=== PATIENT | female | born 1975 | race Caucasian/White ===

== ENCOUNTER 2020-04-13 06:29 | Emergency (ER) | payer MEDICAID ==
[~2020-04-13] VITALS: Ht 154.9 cm; Wt 79.4 kg
[2020-04-13 06:31] VITALS: BP 150/97
[2020-04-13] MEDS ORDERED: NACL 0.9% 1,000 ML IV ONE (06:40)
[2020-04-13] MEDS ORDERED: MORPHINE SULFATE 4 MG/ML SYR IVP ONE (06:40)
[2020-04-13] MEDS ORDERED: ONDANSETRON 4 MG/2 ML VIAL IVP ONE (06:40)
--- NOTE | 2020-04-13 06:45 | NUR ---
PT AMBULATED TO BED 04 STEADY GAIT
--- NOTE | 2020-04-13 06:45 | NUR ---
44 Y/O FEMALE C/O ABD PAIN X 0200 TODAY. PT STATES CONTINUOUS 9/10 BURNING SENSATION. +NAUSEA +DYSURIA. RX: MOTRIN 3HRS WITH NO RELIEF. NKDA. PMH: GALLBLADDER REMOVAL, LEFT OVARIAN CYST.
--- NOTE | 2020-04-13 06:52 | NUR ---
SAILAJA SWAB COLLECTED AND SENT TO LAB
--- NOTE | 2020-04-13 07:00 | NUR ---
PT TAKEN TO CT SCAN VIA W/C
[2020-04-13 07:02] LABS: BASOPHILS % (AUTO) 0.4 % (0.0-2.0); EOSINOPHILS # (AUTO) 0.2 K/uL (0-0.4); EOSINOPHILS % (AUTO) 1.9 % (0.0-4.0); HEMATOCRIT 35.3 % (36-48); HEMOGLOBIN 11.5 g/dL (12.0-16.0); LYMPHOCYTES # (AUTO) 3.1 K/uL (2.5-16.5); LYMPHOCYTES % (AUTO) 37.3 % (20.5-51.1); MEAN CORPUSCULAR HEMOGLOBIN 27 pg (27-31); MEAN CORPUSCULAR HGB CONC 33 g/dL (33-37); MEAN CORPUSCULAR VOLUME 83.1 fL (80-94); MONOCYTES # (AUTO) 0.7 K/uL (0.8-1.0); MONOCYTES % (AUTO) 8.1 % (1.7-9.3); NEUTROPHILS # (AUTO) 4.3 K/uL (1.8-7.7); NEUTROPHILS % (AUTO) 52.3 % (42.2-75.2); PLATELET COUNT (AUTO) 271 K/uL (140-450); RED BLOOD CELL COUNT(AUTO) 4.25 MIL/uL (4.20-5.40); RED CELL DISTRIBUTION WIDTH 17.8 % (11.6-13.7); WHITE BLOOD COUNT (AUTO) 8.3 K/uL (4.8-10.8)
--- NOTE | 2020-04-13 07:06 | NUR ---
PT RETURNED FROM CT SCAN
[2020-04-13 07:12] LABS: APPEARANCE,URINE HAZY (CLEAR); BILIRUBIN,URINE NEGATIVE (NEGATIVE); BLOOD, URINE NEGATIVE (NEGATIVE); COLOR,URINE YELLOW (YELLOW); LEUKOCYTE ESTERASE ,URINE 1+ (NEGATIVE); UGLUCOSE NEGATIVE (NEGATIVE)
--- NOTE | 2020-04-13 07:13 | NUR ---
REPORT GIVEN TO NASIR HURTADO FOR CONTINUITY OF CARE
[2020-04-13 07:18] LABS: ALBUMIN 3.9 g/dL (3.4-5.0); ANION GAP 16.3 (8-16); CARBON DIOXIDE 23.3 mmol/L (21-32); CREATININE 0.6 mg/dL (0.6-1.3); POTASSIUM 3.6 mmol/L (3.5-5.1); TOTAL BILIRUBIN 0.3 mg/dL (0.0-1.0)
--- NOTE | 2020-04-13 07:30 | NUR ---
Pt awake and alert resting in bed. Pt on cardiac tele monitor. All needs met at this time. Will continue to monitor.
[2020-04-13 07:32] LABS: RBC,URINE 0-5 /HPF (0-5); WBC,URINE 0-5 /HPF (0-5)
[2020-04-13 07:33] LABS: NITRITE, URINE POSITIVE (NEGATIVE)
--- NOTE | 2020-04-13 08:09 | NUR ---
MD Manning made aware, pt c/o pain level 8/10 abdominal pain. Awaiting for orders at this time.
[2020-04-13] MEDS ORDERED: KETOROLAC 30 MG/ML VIAL IVP ONE (08:10)
--- NOTE | 2020-04-13 08:25 | NUR ---
Pt refused Toradol, per pt "I think that is the medication that made my neck twitch last time." made aware.
--- NOTE | 2020-04-13 08:32 | NUR ---
MD Manning updating pt on plan of care.
--- NOTE | 2020-04-13 09:26 | NUR ---
Patient discharged with v/s stable. Written and verbal after care instructions given and explained. Patient alert, oriented and verbalized understanding of instructions. Ambulatory with steady gait. All questions addressed prior to discharge. ID band removed. Patient advised to follow up with PMD. Rx of Miraloax Powder, Mineral oil and motrin 800mg was given. Patient educated on indication of medication including possible reaction and side effects. Opportunity to ask questions provided and answered.
[2020-04-13 09:27] VITALS: BP 130/82
== END 2020-04-13 09:26 | disposition home or self-care (01) ==
LOC: MED 06:29
DX: K59.00 Constipation, unspecified (principal); Z20.822 Contact with and (suspected) exposure to COVID-19
CPT/HCPCS: 36415; 74018; 74176; 80053; 81001; 83605; 85025; 87040; 87086; 87426; 96361; 96374; 96375; 99285; J1885; J2270; J2405

== ENCOUNTER 2020-06-27 03:00 | Emergency (ER) | payer MEDICAID ==
[~2020-06-27] VITALS: Ht 154.9 cm; Wt 82.1 kg
[2020-06-27 03:08] VITALS: BP 132/81
--- NOTE | 2020-06-27 03:15 | NUR ---
RECEIVED IN BED 3 WITH C/O LEFT SIDED HEAD PAIN X 8 DAYS. MUCH FACIAL GRIMACING IS NOTED
--- NOTE | 2020-06-27 03:15 | NUR ---
VISUAL ACCUITY TEST: BOTH EYE: 20/10, R EYE:20/10, L EYE: 20/15.
--- NOTE | 2020-06-27 04:10 | NUR ---
TO CT VIA W/C
[2020-06-27] MEDS ORDERED: PROCHLORPERAZINE 10 MG/2 ML VIAL IM ONE (06:00)
[2020-06-27] MEDS ORDERED: KETOROLAC 30 MG/ML VIAL IM ONE (06:00)
[2020-06-27] MEDS ORDERED: diphenhydrAMINE 50 MG/ML VIAL IM ONE (06:00)
[2020-06-27] MEDS ORDERED: HYDROcodone/APAP 5/325 MG 1 TAB TAB PO ONE (06:00)
[2020-06-27 06:40] VITALS: BP 132/81
--- NOTE | 2020-06-27 06:40 | NUR ---
Patient discharged with v/s stable. Written and verbal after care instructions given and explained. Patient verbalized understanding. Ambulatory with steady gait. All questions addressed prior to discharge. Advised to follow up with PMD.
== END 2020-06-27 06:46 | disposition home or self-care (01) ==
LOC: MED 03:00
DX: G43.909 Migraine, unspecified, not intractable, without status migrainosus (principal)
CPT/HCPCS: 70450; 81025; 96372; 99284; J0780; J1200; J1885

== ENCOUNTER 2020-08-16 11:00 | Emergency (ER) | payer MEDICAID ==
[~2020-08-16] VITALS: Ht 154.9 cm; Wt 78.5 kg
[2020-08-16 11:09] VITALS: BP 133/82
--- NOTE | 2020-08-16 11:17 | NUR ---
pt ambulated to bed 07.
--- NOTE | 2020-08-16 11:31 | NUR ---
44 YEAR OLD FEMALE COMPLAINS OF NONRADIATING CHEST PAIN X 3 DAYS. PT STATES FEELS LIKE PRESSURE PAIN. PT ALSO COMPLAINS OF SOB, LUNGS CLEAR BL. PT DENIES NAUSEA, VOMITTING. PT AOX4, BREATHING EVEN AND UNLABORED, SKIN WARM AND DRY. BED IN LOWEST POSITION, LOCKED, BED RAIL UPX1. PT PLACED ON MONITOR, VS STABLE. PMH - DENIES ALLERGIES - NKA
[2020-08-16] MEDS ORDERED: IBUPROFEN 600 MG TAB PO ONE (12:05)
[2020-08-16 12:28] LABS: BASOPHILS % (AUTO) 0.4 % (0.0-2.0); EOSINOPHILS # (AUTO) 0.1 K/uL (0-0.4); EOSINOPHILS % (AUTO) 1.7 % (0.0-4.0); HEMATOCRIT 31.7 % (36-48); HEMOGLOBIN 10.3 g/dL (12.0-16.0); LYMPHOCYTES # (AUTO) 1.4 K/uL (2.5-16.5); LYMPHOCYTES % (AUTO) 19.1 % (20.5-51.1); MEAN CORPUSCULAR HEMOGLOBIN 25 pg (27-31); MEAN CORPUSCULAR HGB CONC 33 g/dL (33-37); MEAN CORPUSCULAR VOLUME 77.6 fL (80-94); MONOCYTES # (AUTO) 0.6 K/uL (0.8-1.0); MONOCYTES % (AUTO) 8.6 % (1.7-9.3); NEUTROPHILS % (AUTO) 70.2 % (42.2-75.2); PLATELET COUNT (AUTO) 247 K/uL (140-450); RED BLOOD CELL COUNT(AUTO) 4.08 MIL/uL (4.20-5.40); RED CELL DISTRIBUTION WIDTH 18.1 % (11.6-13.7); WHITE BLOOD COUNT (AUTO) 7.2 K/uL (4.8-10.8)
--- NOTE | 2020-08-16 12:50 | NUR ---
PT STATES SHE IS STILL HAVING CHEST PAIN AND BODYACHES, ERMD MADE AWARE
[2020-08-16 12:51] LABS: ALBUMIN 3.8 g/dL (3.4-5.0); ANION GAP 12.7 (8-16); CREATININE 0.5 mg/dL (0.6-1.3); POTASSIUM 3.7 mmol/L (3.5-5.1); TOTAL BILIRUBIN 0.3 mg/dL (0.0-1.0)
[2020-08-16] MEDS ORDERED: LORazepam 1 MG TAB PO ONE (12:55)
--- NOTE | 2020-08-16 13:37 | NUR ---
PT STATES SHE STILL HAS BODYACHES AND CHEST PAIN AFTER MEDS, ERMD MADE AWARE
--- NOTE | 2020-08-16 13:46 | NUR ---
DR LINK AT BEDSIDE OF PT
--- NOTE | 2020-08-16 14:50 | NUR ---
SAILAJA SWAB SENT TO LAB
[2020-08-16 16:07] VITALS: BP 117/71
== END 2020-08-16 16:08 | disposition home or self-care (01) ==
LOC: MED 11:00
DX: B34.9 Viral infection, unspecified (principal); Z20.822 Contact with and (suspected) exposure to COVID-19; R07.9 Chest pain, unspecified
CPT/HCPCS: 36415; 71045; 80053; 84484; 85025; 93005; 99285

== ENCOUNTER 2020-08-20 04:55 | Emergency (ER) | payer MEDICAID ==
[~2020-08-20] VITALS: Ht 154.9 cm; Wt 78.9 kg
[2020-08-20 05:15] VITALS: BP 117/61
[2020-08-20] MEDS ORDERED: ACETAMINOPHEN 325 MG TAB PO ONE (06:20)
[2020-08-20] MEDS ORDERED: ACETAMINOPHEN 325 MG TAB ONE (06:28)
[2020-08-20 07:47] VITALS: BP 123/83
== END 2020-08-20 07:47 | disposition home or self-care (01) ==
LOC: MED 04:55
DX: J06.9 Acute upper respiratory infection, unspecified (principal); M94.0 Chondrocostal junction syndrome [Tietze]
CPT/HCPCS: 71045; 93005; 99283

== ENCOUNTER 2020-10-17 13:02 | Emergency (ER) | payer MEDICAID ==
[~2020-10-17] VITALS: Ht 154.9 cm; Wt 78.9 kg
[2020-10-17 13:04] VITALS: BP 127/77
--- NOTE | 2020-10-17 13:13 | NUR ---
44yo f c/o headache, Left sided neck and nape pain x 3 weeks. denies trauma or injury to area. took Tylenol and Ibuprofen last night with little relief. no bruising or trauma noted. pmh: none meds: none nka
--- NOTE | 2020-10-17 13:19 | NUR ---
CHECO PAUL AT BEDSIDE EXAMINING PT
--- NOTE | 2020-10-17 13:25 | NUR ---
PT AMBULATED TO RESTROOM
[2020-10-17] MEDS: KETOROLAC 30 MG/ML VIAL IM ONE (13:53)
[2020-10-17] MEDS: ONDANSETRON 4 MG ODT PO ONE (13:54)
[2020-10-17] MEDS ORDERED: ACET-9496 PO (14:13)
[2020-10-17 14:22] VITALS: BP 127/77
--- NOTE | 2020-10-17 14:22 | NUR ---
Patient discharged with v/s stable. Written and verbal after care instructions about migranes given and explained. Patient alert, oriented and verbalized understanding of instructions. Ambulatory with steady gait. All questions addressed prior to discharge. ID band removed. Patient advised to follow up with PMD. Rx of excedrim extra strength given. Patient educated on indication of medication including possible reaction and side effects. Opportunity to ask questions provided and answered.
== END 2020-10-17 14:22 | disposition home or self-care (01) ==
LOC: MED 13:02
DX: G43.909 Migraine, unspecified, not intractable, without status migrainosus (principal)
CPT/HCPCS: 81002; 81025; 96372; 99283; J1885; Q0162; Q0163

== ENCOUNTER 2021-06-18 09:23 | Emergency (ER) | payer MEDICAID ==
[~2021-06-18] VITALS: Ht 152.4 cm; Wt 84.6 kg
[~2021-06-18 09:23] MED LIST: ACET-9496 PO
[2021-06-18 09:29] VITALS: BP 119/74
--- NOTE | 2021-06-18 09:34 | NUR ---
PT AMBULATED TO ER BED 9 WITH A STEADY GAIT.
--- NOTE | 2021-06-18 09:42 | NUR ---
45 Y/O FEMALE C/O DIZZINESS AND HEADACHE 09/30 DESCRIBES THROBBING X2 WEEKS. PT BP 119/74 IN TRIAGE. DENIES FEVER/CHILLS. DENIES N/V/D. DENIES PMH NKA
--- NOTE | 2021-06-18 10:16 | NUR ---
DR. CARRANZA AT PT BEDSIDE FOR FURTHER EVALUATION.
--- NOTE | 2021-06-18 10:39 | NUR ---
PT TAKEN TO CT VIA W/C.
[2021-06-18] MEDS ORDERED: diphenhydrAMINE 50 MG/ML VIAL IVP ONE (10:40)
[2021-06-18] MEDS ORDERED: ACETAMINOPHEN EXTRA STRENGTH 500 MG TAB PO ONE (10:40)
[2021-06-18] MEDS ORDERED: METOCLOPRAMIDE 10 MG/2 ML INJ VIAL IVP ONE (10:40)
--- NOTE | 2021-06-18 10:45 | NUR ---
PT TAKEN TO ER BED 9 VIA W/C FROM CT.
[2021-06-18] MEDS ORDERED: KETOROLAC 15 MG/ML VIAL IVP ONE (11:25)
[2021-06-18 12:26] VITALS: BP 119/74
--- NOTE | 2021-06-18 12:26 | NUR ---
Patient discharged with v/s stable. Written and verbal after care instructions given FOR MIGRAINES and explained. Patient verbalized understanding. Ambulatory with steady gait. All questions addressed prior to discharge. Advised to follow up with PMD.
== END 2021-06-18 12:26 | disposition home or self-care (01) ==
LOC: MED 09:23
DX: G43.909 Migraine, unspecified, not intractable, without status migrainosus (principal); Z79.899 Other long term (current) drug therapy
CPT/HCPCS: 70450; 96374; 96375; 99284; J1200; J1885; J2765

== ENCOUNTER 2021-06-30 22:55 | Emergency (ER) | payer MEDICAID ==
[~2021-06-30] VITALS: Ht 154.9 cm; Wt 86.6 kg
[2021-06-30 23:03] VITALS: BP 111/73
--- NOTE | 2021-06-30 23:05 | NUR ---
PT AMBULATED TO BED #5
[2021-06-30] MEDS ORDERED: COROTSOL RIGHT EAR (23:23)
[2021-06-30] MEDS ORDERED: IBUPROFEN 800 MG TAB PO ONE (23:25)
--- NOTE | 2021-06-30 23:55 | NUR ---
Note sandra in EDM - 07/01/21 at 2230 by BRITT Patient discharged with v/s stable. Written and verbal after care instructions given and explained. Patient verbalized understanding. Ambulatory with steady gait. All questions addressed prior to discharge. Advised to follow up with PMD.
[2021-07-01] MEDS ORDERED: NEOMYCIN/POLYMYXIN/HC OT SOL. 10 ML BTL RIGHT EAR ONE
[2021-07-01 00:06] VITALS: BP 111/73
--- NOTE | 2021-07-01 00:06 | NUR ---
Patient discharged with v/s stable. Written and verbal after care instructions given and explained. Patient verbalized understanding. Ambulatory with steady gait. All questions addressed prior to discharge. Advised to follow up with PMD
--- NOTE | 2021-07-01 00:06 | NUR ---
NEOMYCIN GIVEN PER DR MAGDALENO AFTER DC PAPERWORK GIVEN TO PT
== END 2021-06-30 23:55 | disposition home or self-care (01) ==
LOC: MED 22:55
DX: H66.91 Otitis media, unspecified, right ear (principal); Z90.49 Acquired absence of other specified parts of digestive tract; Z79.899 Other long term (current) drug therapy; Z98.890 Other specified postprocedural states
CPT/HCPCS: 99283

== ENCOUNTER 2021-08-14 10:33 | Emergency (ER) | payer MEDICAID ==
[~2021-08-14] VITALS: Ht 149.9 cm; Wt 85.7 kg
[~2021-08-14 10:33] MED LIST changes: +COROTSOL RIGHT EAR
[2021-08-14 10:46] VITALS: BP 127/81
--- NOTE | 2021-08-14 11:05 | NUR ---
PATIENT IN ROOM 2 WITH GOWN ON.
--- NOTE | 2021-08-14 11:18 | NUR ---
45YR OLD FEMALE BIB SELF C/O COUGH CP UPPER BACK PAIN X7 DAYS. PAIN LEVEL 8/10. PT STATES BEING SOB WITH COUGH. HAS BEEN COUGHING UP PHELGM. CHEST "HEAVINESS" RADITATES TO UPPER BACK . DENIES FEVER DENIES V/D. PT IN GOWN ON BED SIDE RAILS UP X1. BED AT LOWEST POSITION. NKDA NO MED HX TO NOTE
--- NOTE | 2021-08-14 11:44 | NUR ---
COVID SWAB OBTAINED AND SENT TO LAB
--- NOTE | 2021-08-14 12:16 | NUR ---
45 y/o female, c/o sore throat, productive cough, cp and sob when coughing for 1 week. denies anyone else sick at home. a&o x4, ambulates with even and steady gait. lung sounds clear bl, heart sounds even. pmh: denies nka med: denies
[2021-08-14] MEDS ORDERED: PRED20TA5 PO (12:33)
[2021-08-14] MEDS ORDERED: BENZ200C4 PO (12:33)
[2021-08-14] MEDS ORDERED: AZIT250T4 PO (12:33)
[2021-08-14 12:50] VITALS: BP 114/53
--- NOTE | 2021-08-14 12:50 | NUR ---
Patient discharged with v/s stable. Written and verbal after care instructions given and explained. Patient alert, oriented and verbalized understanding of instructions. Ambulatory with steady gait. All questions addressed prior to discharge. ID band removed. Patient advised to follow up with PMD. Rx of ZITHROMAX PREDNISONE BENZONATATE given. Patient educated on indication of medication including possible reaction and side effects. Opportunity to ask questions provided and answered.
--- NOTE | 2021-08-14 12:51 | NUR ---
The patient's care was reviewed and supervised by Mila Santiago RN.
== END 2021-08-14 12:50 | disposition home or self-care (01) ==
LOC: MED 10:33
DX: J40 Bronchitis, not specified as acute or chronic (principal); Z20.822 Contact with and (suspected) exposure to COVID-19
CPT/HCPCS: 71045; 87426; 99284; Q0092

== ENCOUNTER 2021-09-05 15:33 | Emergency (ER) | payer MEDICAID ==
[~2021-09-05] VITALS: Ht 154.9 cm; Wt 83.9 kg
[~2021-09-05 15:33] MED LIST changes: +AZIT250T4 PO; +BENZ200C4 PO; +PRED20TA5 PO
[2021-09-05 15:54] VITALS: BP 124/81
[2021-09-05] MEDS ORDERED: DEXAMETHASONE 10 MG/ML VIAL IM ONE (17:15)
[2021-09-05] MEDS ORDERED: KETOROLAC 30 MG/ML VIAL IM ONE (17:15)
[2021-09-05] MEDS ORDERED: LORA10TA19 PO (17:46)
[2021-09-05] MEDS ORDERED: DEXT15EL PO (17:46)
[2021-09-05 17:53] VITALS: BP 118/70
--- NOTE | 2021-09-05 17:54 | NUR ---
Patient discharged with v/s stable. Written and verbal after care instructions given and explained. Patient alert, oriented and verbalized understanding of instructions. Ambulatory with steady gait. All questions addressed prior to discharge. ID band removed. Patient advised to follow up with PMD. Rx of MOTRIN, ROBITUSSIN given. Patient educated on indication of medication including possible reaction and side effects. Opportunity to ask questions provided and answered.
== END 2021-09-05 17:54 | disposition home or self-care (01) ==
LOC: MED 15:33
DX: J40 Bronchitis, not specified as acute or chronic (principal); Z79.899 Other long term (current) drug therapy; Z79.2 Long term (current) use of antibiotics
CPT/HCPCS: 71045; 96372; 99284; J1100; J1885

== ENCOUNTER 2022-02-23 01:40 | Emergency (ER) | payer MEDICAID ==
[~2022-02-23] VITALS: Ht 154.9 cm; Wt 86.9 kg
[~2022-02-23 01:40] MED LIST changes: +DEXT15EL PO; +LORA10TA19 PO
[2022-02-23 01:44] VITALS: BP 117/78
--- NOTE | 2022-02-23 01:50 | NUR ---
pt to lobby
--- NOTE | 2022-02-23 04:09 | NUR ---
SUDHIR GAMINO examining patient
[2022-02-23] MEDS ORDERED: KETOROLAC 60 MG/2 ML VIAL IM ONE (04:15)
[2022-02-23] MEDS ORDERED: ONDA-188 PO (04:16)
[2022-02-23] MEDS ORDERED: ACET-9527 PO (04:16)
[2022-02-23] MEDS ORDERED: IBUP-2213 PO (04:16)
[2022-02-23 04:35] VITALS: BP 117/78
--- NOTE | 2022-02-23 04:35 | NUR ---
Patient discharged with v/s stable. Written and verbal after care instructions given and explained to parent/guardian. Parent/Guardian verbalized understanding. Ambulatorysteady gait. All questions addressed prior to discharge. Advised to follow up with PMD.
== END 2022-02-23 04:35 | disposition home or self-care (01) ==
LOC: MED 01:40
DX: R51.9 Headache, unspecified (principal); Z20.822 Contact with and (suspected) exposure to COVID-19; R05.9 Cough, unspecified; Z79.899 Other long term (current) drug therapy
CPT/HCPCS: 87426; 87804; 96374; 99283; J1885

== ENCOUNTER 2022-05-12 09:11 | Emergency (ER) | payer MEDICAID ==
[~2022-05-12] VITALS: Ht 152.4 cm; Wt 90.7 kg
[~2022-05-12 09:11] MED LIST changes: +ACET-9527 PO; +IBUP-2213 PO; +ONDA-188 PO
[2022-05-12 09:32] VITALS: BP 126/84
--- NOTE | 2022-05-12 09:56 | NUR ---
PATIENT AMBULATED TO BED 8.
--- NOTE | 2022-05-12 10:06 | NUR ---
MD PAYNE AT BEDSIDE FOR EVALUATION
[2022-05-12] MEDS ORDERED: KETOROLAC 60 MG/2 ML VIAL IM ONE (10:10)
--- NOTE | 2022-05-12 10:10 | NUR ---
46YO FEMALE PT C/O UPPER ABD PAIN [id number]. INCREASED SYMPTOMS X1WEEK. REPORTS SUDDEN ONSET AND NOTING BLOATING AFTER EATING. DENIES N/V/D, CONSTIPATION, FEVER OR DIET CHANGES. PT AAOX4, HOB POSITIONED PER COMFORT. HX: GASTRITIS NKA
--- NOTE | 2022-05-12 10:24 | NUR ---
XRAY AT BEDSIDE
[2022-05-12 10:42] LABS: BASOPHILS % (AUTO) 0.5 % (0.0-2.0); EOSINOPHILS # (AUTO) 0.1 K/uL (0-0.4); EOSINOPHILS % (AUTO) 1.8 % (0.0-4.0); HEMOGLOBIN 9.5 g/dL (12.0-16.0); LYMPHOCYTES % (AUTO) 28.3 % (20.5-51.1); MEAN CORPUSCULAR HEMOGLOBIN 23 pg (27-31); MEAN CORPUSCULAR HGB CONC 32 g/dL (33-37); MEAN CORPUSCULAR VOLUME 72.3 fL (80-94); MONOCYTES # (AUTO) 0.4 K/uL (0.8-1.0); MONOCYTES % (AUTO) 6.3 % (1.7-9.3); NEUTROPHILS # (AUTO) 4.4 K/uL (1.8-7.7); NEUTROPHILS % (AUTO) 63.1 % (42.2-75.2); PLATELET COUNT (AUTO) 265 K/uL (140-450); RED BLOOD CELL COUNT(AUTO) 4.15 MIL/uL (4.20-5.40); RED CELL DISTRIBUTION WIDTH 18.4 % (11.6-13.7)
[2022-05-12 11:19] LABS: ALBUMIN 3.6 g/dL (3.4-5.0); ANION GAP 10.2 (8-16); CARBON DIOXIDE 23.8 mmol/L (21-32); CREATININE 0.6 mg/dL (0.6-1.3); TOTAL BILIRUBIN 0.2 mg/dL (0.0-1.0)
[2022-05-12 11:26] VITALS: BP 117/82
[2022-05-12] MEDS ORDERED: MAGN296S48 PO (11:52)
[2022-05-12] MEDS ORDERED: TRAM-748 PO (11:52)
--- NOTE | 2022-05-12 12:09 | NUR ---
Patient discharged with v/s stable. Written and verbal after care instructions FOR ABD PAIN given and explained. Patient alert, oriented and verbalized understanding of instructions. Ambulatory with steady gait. All questions addressed prior to discharge. ID band removed. Patient advised to follow up with PMD. Rx of CITROMA AND ULTRAM given. Opportunity to ask questions provided and answered.
--- NOTE | 2022-05-12 12:10 | NUR ---
The patient's care was reviewed and supervised by Barbara Riddle, RN, RN.
== END 2022-05-12 12:09 | disposition home or self-care (01) ==
LOC: MED 09:11
DX: K59.00 Constipation, unspecified (principal); K21.9 Gastro-esophageal reflux disease without esophagitis; Z90.49 Acquired absence of other specified parts of digestive tract; Z79.899 Other long term (current) drug therapy; Z79.891 Long term (current) use of opiate analgesic; Z79.1 Long term (current) use of non-steroidal anti-inflammatories (NSAID); Z79.2 Long term (current) use of antibiotics
CPT/HCPCS: 36415; 74018; 80053; 81025; 82150; 83690; 85025; 96372; 99284; J1885; Q0092

== ENCOUNTER 2023-02-08 11:09 | Emergency (ER) | payer MEDICAID ==
[~2023-02-08] VITALS: Ht 154.9 cm; Wt 81.6 kg
[~2023-02-08 11:09] MED LIST changes: +MAGN296S48 PO; +TRAM-748 PO
[2023-02-08 11:22] VITALS: BP 130/88; PULSE 65; RESP 18; TEMP 98.6; O2SAT 99
[2023-02-08 12:06] LABS: FLU A ANTIGEN negative (NEGATIVE); FLU B ANTIGEN negative (NEGATIVE)
[2023-02-08] MEDS ORDERED: PRED20TA5 PO ×2 (14:18→14:45)
[2023-02-08 14:49] VITALS: BP 130/88; PULSE 65; RESP 18; TEMP 98.6; O2SAT 99
== END 2023-02-08 14:49 | disposition home or self-care (01) ==
LOC: MED 11:09
DX: R05.9 Cough, unspecified (principal); J02.9 Acute pharyngitis, unspecified; R07.9 Chest pain, unspecified; Z20.822 Contact with and (suspected) exposure to COVID-19; K21.9 Gastro-esophageal reflux disease without esophagitis; Z90.49 Acquired absence of other specified parts of digestive tract; Z98.890 Other specified postprocedural states; Z79.899 Other long term (current) drug therapy; Z79.1 Long term (current) use of non-steroidal anti-inflammatories (NSAID); Z79.2 Long term (current) use of antibiotics
CPT/HCPCS: 81025; 99283

== ENCOUNTER 2023-06-29 16:21 | Emergency (ER) | payer MEDICAID ==
[~2023-06-29] VITALS: Ht 157.5 cm; Wt 89.4 kg
[2023-06-29 16:35] VITALS: BP 111/64; PULSE 59; RESP 16; TEMP 98.4; O2SAT 97
[2023-06-29] MEDS: NACL 0.9% 1,000 ML IV ONE (18:09)
[2023-06-29] MEDS: diphenhydrAMINE 50 MG/ML VIAL IVP ONE (18:11)
[2023-06-29] MEDS: KETOROLAC 30 MG/ML VIAL IVP ONE (18:12)
[2023-06-29] MEDS: PROCHLORPERAZINE 10 MG/2 ML VIAL IVP ONE (18:13)
[2023-06-29 18:14] LABS: BASOPHILS % (AUTO) 0.4 % (0.0-2.0); EOSINOPHILS % (AUTO) 0.7 % (0.0-4.0); HEMATOCRIT 35.2 % (36-48); HEMOGLOBIN 11.5 g/dL (12.0-16.0); LYMPHOCYTES # (AUTO) 1.6 K/uL (2.5-16.5); LYMPHOCYTES % (AUTO) 30.1 % (20.5-51.1); MEAN CORPUSCULAR HEMOGLOBIN 26 pg (27-31); MEAN CORPUSCULAR HGB CONC 33 g/dL (33-37); MEAN CORPUSCULAR VOLUME 80.3 fL (80-94); MONOCYTES # (AUTO) 0.3 K/uL (0.8-1.0); MONOCYTES % (AUTO) 6.2 % (1.7-9.3); NEUTROPHILS # (AUTO) 3.3 K/uL (1.8-7.7); NEUTROPHILS % (AUTO) 62.6 % (42.2-75.2); PLATELET COUNT (AUTO) 253 K/uL (140-450); RED BLOOD CELL COUNT(AUTO) 4.38 MIL/uL (4.20-5.40); RED CELL DISTRIBUTION WIDTH 18.7 % (11.6-13.7); WHITE BLOOD COUNT (AUTO) 5.3 K/uL (4.8-10.8)
[2023-06-29 18:20] LABS: ANION GAP 9.8 (8-16); CALCIUM 8.6 mg/dL (8.5-10.1); CREATININE 0.6 mg/dL (0.6-1.3); POTASSIUM 3.8 mmol/L (3.5-5.1)
[2023-06-29] MEDS ORDERED: IBUP-2218 PO (18:40)
[2023-06-29] MEDS ORDERED: ACET-9496 PO (18:40)
[2023-06-29 19:07] VITALS: BP 116/71; PULSE 57; RESP 17; TEMP 98.2; O2SAT 99
== END 2023-06-29 19:13 | disposition home or self-care (01) ==
LOC: MED 16:21
DX: G43.909 Migraine, unspecified, not intractable, without status migrainosus (principal); R07.89 Other chest pain; Z79.899 Other long term (current) drug therapy
CPT/HCPCS: 36415; 71045; 80048; 84484; 85025; 93005; 96361; 96374; 96375; 99285; J0780; J1200; J1885; J7030